=== PATIENT | male | born 1960 | race Caucasian/White ===

== ENCOUNTER 2021-10-30 10:47 | Outpatient (RCR) | payer OTHER, SELFPAY | END 2022-05-16 13:01 | disposition home or self-care (01) | PROVIDERS: PCP Internal Medicine; Visit Provider Internal Medicine | DX: M25.552 Pain in left hip (principal); R26.9 Unspecified abnormalities of gait and mobility; R53.1 Weakness; Z51.89 Encounter for other specified aftercare | CPT/HCPCS: 97110 ==

== ENCOUNTER 2023-01-28 08:22 | Outpatient (CLI) | payer OTHER, SELFPAY | END 2023-01-28 08:23 | disposition home or self-care (01) | LOC: NFLDREF 01-31 14:28 | PROVIDERS: PCP Internal Medicine; Referring Provider Internal Medicine; Visit Provider Internal Medicine | DX: Z12.5 Encounter for screening for malignant neoplasm of prostate (principal); Z13.1 Encounter for screening for diabetes mellitus | CPT/HCPCS: 84153 ==

== ENCOUNTER 2024-07-19 12:50 | Outpatient (CLI) | payer BC, SELFPAY | END 2024-07-19 12:51 | disposition home or self-care (01) | LOC: NFLDREF 12:50 | PROVIDERS: PCP Internal Medicine; Visit Provider Internal Medicine | DX: Z12.5 Encounter for screening for malignant neoplasm of prostate (principal) | CPT/HCPCS: G0103 ==